=== PATIENT | female | born 1995 | race Caucasian/White ===

== ENCOUNTER 2016-08-05 20:12 | Emergency (ER) | payer MEDICAID ==
[2016-08-05 20:57] LABS: BASOPHIL % 0.4 % (0-2); PLATELET COUNT 276 x10^3mcL (130-400); RED CELL DISTRIBUTION WIDTH 13.4 % (11.5-14.5)
[2016-08-05 22:02] VITALS: BP 129/72
== END 2016-08-05 22:02 | disposition home or self-care (01) ==
LOC: ED 20:12
PROVIDERS: Emergency Medicine
DX: R04.0 Epistaxis (principal)